=== PATIENT | female | born 1970 | race Caucasian/White ===

== ENCOUNTER 2023-05-17 13:01 | Emergency (ER) | payer OTHER ==
[2023-05-17 13:27] VITALS: BMI 32.9
[2023-05-17 14:09] LABS: HEMATOCRIT 31.6 % (32.4-45.2); HEMOGLOBIN 10.2 G/dL (10.7-15.3); MCH 25.8 pg (25.7-33.7); MCHC 32.3 g/dl (32.0-36.0); MEAN CELL VOLUME 80.1 fl (80-96); MEAN PLT VOLUME 8.4 fl (7.5-11.1); PLATELET COUNT 440.2 10^3/uL (134-434); RBC 3.95 10^6/uL (3.60-5.2); RDW 16.9 % (11.6-15.6); WHITE BLOOD COUNT 9.5 10^3/uL (4.0-10.8)
[2023-05-17 14:21] LABS: BILIRUBIN,TOTAL 0.3 mg/dl (0.2-1); CALCIUM 8.9 mg/dl (8.5-10.1); CREATININE 0.7 mg/dl (0.6-1.3); TOT PROT 6.9 g/dl (6.4-8.2)
[2023-05-17 14:38] LABS: EPITHELIAL CELLS 0-5 /hpf
[2023-05-17] MEDS ORDERED: ACETAMINOPHEN INJECTION 100 ML IVPB ONE (14:43)
[2023-05-17 14:45] LABS: PLATELET ESTIMATE INCREASED
[2023-05-17] MEDS: SODIUM CHLORIDE 0.9% 500 ML INFUS.BAG IV ONE (14:52)
[2023-05-17] MEDS: ACETAMINOPHEN 1000 MG/100 ML BAG IVPB ONE (14:53)
[2023-05-17 17:37] VITALS: BP 124/72; PULSE 81; RESP 16; TEMP 99
== END 2023-05-17 17:57 | disposition home or self-care (01) ==
LOC: FER 13:01
PROC: 3E033NZ Introduction of Analgesics, Hypnotics, Sedatives into Peripheral Vein, Percutaneous Approach (ICD-10-PCS; principal; 2023-05-17)
DX: J06.9 Acute upper respiratory infection, unspecified (principal); R09.81 Nasal congestion; R05.9 Cough, unspecified; R07.89 Other chest pain; R53.1 Weakness; R42 Dizziness and giddiness; Z20.822 Contact with and (suspected) exposure to COVID-19
CPT/HCPCS: 0241U-QW; 36415; 71046-TC-FY; 80053; 81003; 81015; 84484; 85027; 93005; 99285-25; J0131